=== PATIENT | female | born 1950 | race Caucasian/White ===

== ENCOUNTER 2017-04-26 21:49 | Emergency (ER) | payer MEDICARE, BC ==
[2017-04-26] MEDS ORDERED: Glucagon* 1 MG VIAL IV ONE (22:33)
[2017-04-26 22:46] LABS: Hematocrit 38 % (35-47); Hemoglobin 12.8 g/dl (12.0-16.0); Mean Corpuscular HGB Conc 34 g/dl (31-36); Mean Corpuscular Hemoglobin 32 pg (27-31); Mean Corpuscular Volume 96 fL (80-97); Mean Platelet Volume 7 um3 (7.4-10.4); Red Blood Count 3.95 10^6/ul (4.0-5.4); Red Cell Distribution Width 13 % (10.5-15); White Blood Count 10.7 10^3/ul (3.5-10.8)
[2017-04-26 23:01] LABS: Albumin 3.9 g/dL (3.2-5.2); BUN/Creatinine Ratio 8.7 (8-20); Calcium 8.7 mg/dL (8.6-10.3); EGFR African American 68.2 (>60); Globulin 3.1 g/dL (2-4); Potassium 3.4 mmol/L (3.5-5.0); Total Bilirubin 0.2 mg/dL (0.2-1.0)
[2017-04-26 23:07] VITALS: BP 178/86
--- NOTE | 2017-04-27 01:47 | ED ---
IDayne,Nilsa, scribed for Tamra Easley MD on 04/26/17 at 2229 . Throat Pain/Nasal Congestion - HPI Summary HPI Summary: This 66 y/o female presents to ED for FB sensation after swallowing a pill of glucosamine chondroitin at 2130 PM. Pt attempted to swallow pill down with warm water, and found out that she had trouble swallowing it. Pt is able to swallow her own saliva, but is unable to swallow water. Negative respiratory distress. PMHx does NOT includes GERD. Pt does not take prilosec. 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 Pt last ate 1800 PM with her son, and pt did not have any difficulty swallowing then and did not have a choking episode. Primary care involves Dr. Ann as urologist. - History of Current Complaint Chief Complaint: EDGeneral Time Seen by Provider: 04/26/17 22:20 Hx Obtained From: Patient, Family/School Business Manager - with pt, Medical Records Onset/Duration: Sudden Onset, Lasting Minutes, Lasting Hours, Still Present Associated Signs And Symptoms: Positive: FB Sensation Cough: None Related History: Smoking, T & A - Epiglottits Risk Factors Epiglottis Risk Factors: Negative - Allergies/Home Medications Allergies/Adverse Reactions: Allergies Allergy/AdvReac Type Severity Reaction Status Date / Time No Known Allergies Allergy Verified 04/26/17 21:52 PMH/Surg Hx/FS Hx/Imm Hx Previously Healthy: No - ureteral cancer s/p nephrectomy Endocrine/Hematology History: Denies: Hx Diabetes Cardiovascular History: Denies: Hx Hypertension History: Reports: Hx Renal Disease, Other Problems/Disorders - ureteral cancer s/p nephrectomy Sensory History: Reports: Hx Contacts or Glasses - reading glasses Denies: Hx Hearing Aid Opthamlomology History: Reports: Hx Contacts or Glasses - reading glasses - Cancer History Cancer Type, Location and Year: left kidney - Surgical History Surgery Procedure, Year, and Place: 2010 left nephrectomy, [facility] [place]. 2007 [place] [facility] [place]. 1989 [facility] [place]. 1965 tonsilectomy, [place] Hx Anesthesia Reactions: No Infectious Disease History: No Infectious Disease History: Denies: Traveled Outside the [place] in Last 30 Days - Family History Known Family History: Negative: Other - Negative adverse reaction to anesthesia. Mother with Alzheimer's - Social History Occupation: Retired Lives: With Family Alcohol Use: None Substance Use Type: Reports: None Smoking Status (MU): Current Every Day Smoker Type: Cigarettes Amount Used/How Often: 1PP/WEEK Have You Smoked in the Last Year: Yes Review of Systems Negative: Fever Positive: Other - FB in throat. Positive difficulty swallowing water. Cardiovascular: Negative Negative: Shortness Of Breath Gastrointestinal: Negative Neurological: Negative Psychological: Normal All Other Systems Reviewed And Are Negative: Yes Physical Exam Triage Information Reviewed: Yes Vital Signs On Initial Exam: Initial Vitals Temp Pulse Resp BP Pulse Ox 97.8 F 74 16 180/94 96 04/26/17 21:54 04/26/17 21:54 04/26/17 21:54 04/26/17 21:54 04/26/17 21:54 Vital Signs Reviewed: Yes Appearance: Positive: Well-Appearing, Well-Nourished, Pain Distress Skin: Positive: Warm, Skin Color Reflects Adequate Perfusion, Dry Head/Face: Positive: Normal Head/Face Inspection Eyes: Positive: EOMI, Conjunctiva Clear ENT: Positive: Pharynx normal, Other - FB sensation on left side of throat at the level of thyroid cartilage Neck: Positive: Supple, Nontender Respiratory/Lung Sounds: Positive: Clear to Auscultation, Breath Sounds Present Cardiovascular: Positive: RRR, Pulses are Symmetrical in both Upper and Lower Extremities. Negative: Murmur Abdomen Description: Positive: Nontender, Soft. Negative: Distended, Guarding Musculoskeletal: Positive: Strength/ROM Intact. Negative: Edema Left, Edema Right Neurological: Positive: Sensory/Motor Intact, Alert, Oriented to Person Place, Time, Facial Symmetry, Speech Normal Psychiatric: Positive: Affect/Mood Appropriate AVPU Assessment: Alert Diagnostics - Vital Signs Vital Signs Temp Pulse Resp BP Pulse Ox 04/26/17 22:15 65 96 04/26/17 22:13 168/93 04/26/17 21:54 97.8 F 74 16 180/94 96 - Laboratory Lab Results: Lab Results 04/26/17 04/26/17 04/26/17 Range/Units 22:35 22:35 22:35 WBC 10.7 (3.5-10.8) 10^3/ul RBC 3.95 L (4.0-5.4) 10^6/ul Hgb 12.8 (12.0-16.0) g/dl Hct 38 (35-47) % MCV 96 (80-97) fL MCH 32 H (27-31) pg MCHC 34 (31-36) g/dl RDW 13 (10.5-15) % Plt Count 399 (150-450) 10^3/ul MPV 7 L (7.4-10.4) um3 Neut % (Auto) 61.2 (38-83) % Lymph % (Auto) 27.8 (25-47) % [place] % (Auto) 8.6 (1-9) % Eos % (Auto) 1.7 (0-6) % Baso % (Auto) 0.7 (0-2) % Absolute Neuts (auto) 6.6 (1.5-7.7) 10^3/ul Absolute Lymphs (auto) 3.0 (1.0-4.8) 10^3/ul Absolute Monos (auto) 0.9 H (0-0.8) 10^3/ul Absolute Eos (auto) 0.2 (0-0.6) 10^3/ul Absolute Basos (auto) 0.1 (0-0.2) 10^3/ul Absolute Nucleated RBC 0.01 10^3/ul Nucleated RBC % 0.1 INR (Anticoag Therapy) 0.84 L (0.89-1.11) Sodium 136 (133-145) mmol/L Potassium 3.4 L (3.5-5.0) mmol/L Chloride 106 (101-111) mmol/L Carbon Dioxide 24 (22-32) mmol/L Anion Gap 6 (2-11) mmol/L BUN 9 (6-24) mg/dL Creatinine 1.04 H (0.51-0.95) mg/dL Est GFR ( Amer) 68.2 (>60) Est GFR (Non-Af Amer) 53.0 (>60) BUN/Creatinine Ratio 8.7 (8-20) Glucose 108 H (70-100) mg/dL Calcium 8.7 (8.6-10.3) mg/dL Total Bilirubin 0.20 (0.2-1.0) mg/dL AST 14 (13-39) U/L ALT 9 (7-52) U/L Alkaline Phosphatase 142 H (34-104) U/L Total Protein 7.0 (6.4-8.9) g/dL Albumin 3.9 (3.2-5.2) g/dL Globulin 3.1 (2-4) g/dL Albumin/Globulin Ratio 1.3 (1-3) Result Diagrams: 04/26/17 22:35 04/26/17 22:35 Lab Statement: Any lab studies that have been ordered have been reviewed, and results considered in the medical decision making process. Re-Evaluation - Re-Evaluation First Eval Re-Evaluation Time: 22:37 Comment: MD in room to update pt with ENT consultation and plan of care involving glucagon and monitor. EENT Course/Dx - Course Course Of Treatment: Consultation: Dr. Krueger (ENT) at 2234 PM states pills will dissolve, does not need a procedure, may safely be discharged. - Differential Diagnoses Differential Diagnoses: Other - esophageal foreign body, globus hystericus - Diagnoses Provider Diagnoses: Foreign body sensation in throat - Provider Notifications Discussed Care Of Patient With: Herbert Krueger Discharge - Discharge Plan Condition: Stable Disposition: HOME Patient Education Materials: Esophageal Foreign Body (ED) Referrals: Yunior Birmingham MD [Primary Care Provider] - 2 Days The documentation as recorded by the Dayne darden Soohyun accurately reflects the service I personally performed and the decisions made by , Tamra Easley MD.
== END 2017-04-26 23:06 | disposition home or self-care (01) ==
LOC: ED 21:49
DX: S10.15XA Superficial foreign body of throat, initial encounter (principal); X58.XXXA Exposure to other specified factors, initial encounter; Y93.9 Activity, unspecified; Y92.9 Unspecified place or not applicable; F17.210 Nicotine dependence, cigarettes, uncomplicated
CPT/HCPCS: 36415; 80053; 85025; 85610; 99282